=== PATIENT | female | born 1955 | race Caucasian/White ===

== ENCOUNTER 2022-05-17 09:53 | Day surgery (SDC) | payer MEDICARE ==
[~2022-05-17] VITALS: Ht 167.6 cm; Wt 97.5 kg
[~2022-05-17 09:53] MED LIST: SYMBICORT1 AE1 IN
[2022-05-17 13:37] VITALS: BP 126/58
== END 2022-05-17 13:24 | disposition home or self-care (01) ==
LOC: ORM 09:53
PROVIDERS: ATTEND Internal Medicine Gastroenterology
PROC: 0DBK8ZX Excision of Ascending Colon, Via Natural or Artificial Opening Endoscopic, Diagnostic (ICD-10-PCS; principal; 2022-05-17)
PROC: 0DBP8ZX Excision of Rectum, Via Natural or Artificial Opening Endoscopic, Diagnostic (ICD-10-PCS; 2022-05-17)
DX: Z12.11 Encounter for screening for malignant neoplasm of colon (principal); D12.8 Benign neoplasm of rectum; K57.30 Diverticulosis of large intestine without perforation or abscess without bleeding; K64.8 Other hemorrhoids; Z86.010 Personal history of colon polyps

== ENCOUNTER 2022-05-31 10:05 | Day surgery (SDC) | payer MEDICARE ==
[~2022-05-31] VITALS: Ht 167.6 cm; Wt 99.8 kg
[2022-05-31 13:41] VITALS: BP 129/64
== END 2022-05-31 12:28 | disposition home or self-care (01) ==
LOC: ENDO 10:05
PROVIDERS: ATTEND Internal Medicine Gastroenterology
PROC: 0DBP8ZX Excision of Rectum, Via Natural or Artificial Opening Endoscopic, Diagnostic (ICD-10-PCS; principal; 2022-05-31)
DX: D12.8 Benign neoplasm of rectum (principal); Z86.010 Personal history of colon polyps

== ENCOUNTER 2023-01-03 08:13 | Day surgery (SDC) | payer MEDICARE ==
[~2023-01-03] VITALS: Ht 167.6 cm; Wt 108.4 kg
[~2023-01-03 08:13] MED LIST changes: +ACETAMINOPHEN325 MG PO
[2023-01-03 10:13] VITALS: BP 136/71
== END 2023-01-03 10:28 | disposition home or self-care (01) ==
LOC: ENDO 08:13 → ORM 16:25
PROVIDERS: ATTEND Internal Medicine Gastroenterology
PROC: 0DBH8ZX Excision of Cecum, Via Natural or Artificial Opening Endoscopic, Diagnostic (ICD-10-PCS; principal; 2023-01-03)
PROC: 0DBP8ZX Excision of Rectum, Via Natural or Artificial Opening Endoscopic, Diagnostic (ICD-10-PCS; 2023-01-03)
DX: D12.0 Benign neoplasm of cecum (principal); K62.1 Rectal polyp; K57.30 Diverticulosis of large intestine without perforation or abscess without bleeding; K64.8 Other hemorrhoids; J43.1 Panlobular emphysema; Z86.010 Personal history of colon polyps